=== PATIENT | male | born 1985 | race Caucasian/White ===

== ENCOUNTER 2019-06-14 22:47 | Emergency (ER) | payer SELFPAY ==
[2019-06-14] MEDS: Meperidine PF 50 MG/ML Syringe IM ONE ×2 (23:50→23:52)
[2019-06-14] MEDS: Acetaminophen/HYDROcodone 325-5 MG Tab PO PRN (23:54)
--- NOTE | 2019-06-14 23:55 | EDM.PDOC ---
ED HPI GENERAL MEDICAL PROBLEM - General Chief Complaint: General Stated Complaint: low back pain; fall Time Seen by Provider: 06/14/19 23:20 Source of Information: Reports: Patient History Limitations: Reports: No Limitations - History of Present Illness INITIAL COMMENTS - FREE TEXT/NARRATIVE: 33-year-old male presents emergency room for increasing low back pain. He is scheduled for an MRI of his lumbar spine 06/19/19 for left leg radiculopathy. His pain management is provided by his primary care Chris GRIFFITHS. He has been taking Ultram and hydrocodone. He called to get into see Chris on Sunday for refill of his pain medications but was unable to get an appointment. He was told to be seen in the ER if his pain was out of control. He was seen at the [facility] ER yesterday. He was given IM Toradol and 2 Percocet. He has allergies to Toradol causing a rash. He now presents to the emergency room here as he fell helping a friend today with his cattle falling on the ice. He is cooperative, pleasant, and answers my questions appropriately. His buttock pain is worse in his low back pain currently. He denies saddle paresthesias. He has no loss of bowel or bladder control. Activity such as bending twisting or lifting exacerbate his symptoms. He reports he has significant difficulty writing and a vehicle very long. No other complaints are voiced. Onset: Unknown/Unsure Duration: Getting Worse Location: Reports: Back, Lower Extremity, Left Quality: Reports: Burning Severity: Moderate Improves with: Reports: Medication, Rest Worsens with: Reports: Movement Associated Symptoms: Reports: No Other Symptoms Treatments SAWMILL TALLY CLERK: Reports: NSAIDS Right Lower Back Pain Score (Numeric/FACES): 10 - Related Data Allergies Allergy/AdvReac Type Severity Reaction Status Date / Time baclofen Allergy Hives Verified 06/14/19 23:15 cyclobenzaprine Allergy Hives Verified 06/14/19 23:15 [From Flexeril] gabapentin Allergy Hives Verified 06/14/19 23:15 ketorolac [From Toradol] Allergy Rash Verified 06/14/19 23:15 Home Meds: Home Meds Fexofenadine [Hilda] 180 mg PO DAILY 06/14/19 [History] Past Medical History Cardiovascular History: Reports: Hypertension Other Cardiovascular History: possible HTN (Jun 2019) Gastrointestinal History: Reports: GERD Musculoskeletal History: Reports: Back Pain, Chronic Neurological History: Reports: Headaches, Chronic, Migraines - Infectious Disease History Infectious Disease History: Reports: Chicken Pox Social & Family History - Tobacco Use Smoking Status *Q: Current Every Day Smoker Years of Tobacco use: 15 Packs/Tins Daily: 0.5 - Caffeine Use Caffeine Use: Reports: Soda - Recreational Drug Use Recreational Drug Use: No ED ROS GENERAL - Review of Systems Review Of Systems: Comprehensive ROS is negative, except as noted in HPI. ED EXAM, GENERAL - Physical Exam Exam: See Below Exam Limited By: No Limitations General Appearance: Alert, WD/WN, No Apparent Distress Ears: Hearing Grossly Normal Nose: Normal Inspection Throat/Mouth: Normal Voice, No Airway Compromise Head: Atraumatic Neck: Normal Inspection Respiratory/Chest: No Respiratory Distress Back Exam: Normal Inspection, Paraspinal Tenderness Extremities: Normal Inspection, Normal Range of Motion Neurological: Alert, Oriented, No Motor/Sensory Deficits Psychiatric: Normal Affect, Normal Mood Skin Exam: Warm, Dry, Intact Course - Vital Signs Last Recorded V/S: Last Vital Signs Temp 98.3 F 06/14/19 23:02 Pulse 93 06/14/19 23:02 Resp 18 06/14/19 23:02 BP 141/78 H 06/14/19 23:02 Pulse Ox 100 06/14/19 23:02 - Orders/Labs/Meds Orders: Active Orders 24 hr Category Date Time Status Lumbar Spine 2 or 3V [CR] Stat Exams 06/14/19 23:12 Ordered Acetaminophen/HYDROcodone [[place] 325-5 MG] Med 06/14/19 23:45 Ordered 6 tab PO Q6H PRN Medication Orders Hydrocodone Bitart/Acetaminophen ([place] 325-5 Mg) 6 tab PO Q6H PRN PRN Reason: Pain Meds: Medications Generic Name Dose Route Start Last Admin Trade Name Freq PRN Reason Stop Dose Admin Hydrocodone Bitart/Acetaminophen 6 tab 06/14/19 23:45 [place] 325-5 Mg PO Q6H PRN Pain Discontinued Medications Generic Name Dose Route Start Last Admin Trade Name Freq PRN Reason Stop Dose Admin Meperidine HCl 50 mg 06/14/19 23:44 Demerol IM 06/14/19 23:45 ONETIME ONE Meperidine HCl 50 mg 06/14/19 23:44 Demerol IM 06/14/19 23:45 ONETIME ONE - Radiology Interpretation Free Text/Narrative:: X-rays AP lateral lumbar spine Findings: There is loss of the lumbar lordosis. Bridging anterior disc osteophyte is noted off L2-3 where there is loss of intervertebral body disc height. No acute fracture or spondylolisthesis is seen. Impression: Loss of lumbar lordosis. Degenerative disc disease with disc osteophyte complex L2-3 Departure - Departure Time of Disposition: 00:00 Disposition: Home, Self-Care 01 Condition: Good Clinical Impression: Lumbar back pain with radiculopathy affecting left lower extremity - Discharge Information Instructions: Sciatica, [id number], Chronic Back Pain Forms: ED Department Discharge - My Orders Last 24 Hours: My Active Orders 06/14/19 23:12 Lumbar Spine 2 or 3V [CR] Stat 06/14/19 23:45 Acetaminophen/HYDROcodone [[place] 325-5 MG] 6 tab PO Q6H PRN - Assessment/Plan Last 24 Hours: My Active Orders 06/14/19 23:12 Lumbar Spine 2 or 3V [CR] Stat 06/14/19 23:45 Acetaminophen/HYDROcodone [[place] 325-5 MG] 6 tab PO Q6H PRN Assessment:: Low back pain with left leg radiculopathy Plan: 1. [place] 5/325 1po Q6hrs prn. #6 2. Ibuprofen 800 mg 3 times a day with food. 3. Ice or heat packs lower back. 4. No vigorous activity or heavy lifting 5. Follow-up with your primary care on Sunday
== END 2019-06-15 | disposition home or self-care (01) ==
LOC: KA.ED 22:47
DX: M54.16 Radiculopathy, lumbar region (principal); F17.210 Nicotine dependence, cigarettes, uncomplicated; K21.9 Gastro-esophageal reflux disease without esophagitis; Z79.899 Other long term (current) drug therapy; Z88.1 Allergy status to other antibiotic agents; Z88.6 Allergy status to analgesic agent
CPT/HCPCS: 72100; 96372; 99283; A9270; J2175; 99284

== ENCOUNTER 2019-07-03 23:47 | Emergency (ER) | payer OTHER ==
--- NOTE | 2019-07-04 00:22 | EDM.PDOC ---
ED HPI GENERAL MEDICAL PROBLEM - General Chief Complaint: Upper Extremity Injury/Pain Stated Complaint: Shoulder pain Time Seen by Provider: 07/04/19 00:05 Source of Information: Reports: Patient History Limitations: Reports: No Limitations - History of Present Illness INITIAL COMMENTS - FREE TEXT/NARRATIVE: 33 YO WM presents to ER complaining of right supper back/shoulder pain which began after carrying some plywood to his truck earlier in the day. Pt with history of chronic low back pain and is followed closely by Chris Cueto. Pt has been scheduled to see pain management for epidural shots. Pt is treated with hydrocodone 5/325 for his chronic pain. Pt reports taking Aleve 2 tablets at 8pm without much improvement in pain. Pt requesting tramadol for pain because it doesn't make him sleepy. Pt denies any weakness or paraesthesias. Pt able to move neck without pain. Pt reports pain is behind his right shoulder blade. Pt denies chest pain or shortness of breath. Onset: Today Location: Reports: Upper Extremity, Right Quality: Reports: Ache Severity: Moderate Improves with: Reports: Rest Worsens with: Reports: Movement Associated Symptoms: Reports: No Other Symptoms. Denies: Chest Pain, Shortness of Breath Right Shoulder Pain Score (Numeric/FACES): 9 - Related Data Allergies Allergy/AdvReac Type Severity Reaction Status Date / Time baclofen Allergy Hives Verified 07/04/19 00:06 cyclobenzaprine Allergy Hives Verified 07/04/19 00:06 [From Flexeril] gabapentin Allergy Hives Verified 07/04/19 00:06 ketorolac [From Toradol] Allergy Rash Verified 07/04/19 00:06 methocarbamol [From Robaxin] Allergy Swelling Verified 07/04/19 00:13 Home Meds: Home Meds Fexofenadine [Hilda] 180 mg PO DAILY 06/14/19 [History] traMADol [Ultram] 50 mg PO Q6H PRN #6 tab 07/04/19 [Rx] Past Medical History Cardiovascular History: Reports: Hypertension Other Cardiovascular History: possible HTN (Jun 2019) Gastrointestinal History: Reports: GERD Musculoskeletal History: Reports: Back Pain, Chronic Neurological History: Reports: Headaches, Chronic, Migraines - Infectious Disease History Infectious Disease History: Reports: Chicken Pox Social & Family History - Caffeine Use Caffeine Use: Reports: Soda Review of Systems - Review of Systems Review Of Systems: See Below Constitutional: Reports: No Symptoms Eyes: Reports: No Symptoms Ears: Reports: No Symptoms Nose: Reports: No Symptoms Mouth/Throat: Reports: No Symptoms Respiratory: Reports: No Symptoms Cardiovascular: Reports: No Symptoms GI/Abdominal: Reports: No Symptoms Genitourinary: Reports: No Symptoms Musculoskeletal: Reports: Shoulder Pain Skin: Reports: No Symptoms Neurological: Reports: No Symptoms Psychiatric: Reports: No Symptoms ED EXAM, GENERAL - Physical Exam Exam: See Below Exam Limited By: No Limitations General Appearance: Alert, WD/WN, No Apparent Distress Eye Exam: Bilateral Eye: PERRL Head: Atraumatic, Normocephalic Neck: Normal Inspection, Supple, Non-Tender, Full Range of Motion Respiratory/Chest: No Respiratory Distress, Lungs Clear, Normal Breath Sounds, No Accessory Muscle Use, Chest Non-Tender Cardiovascular: Normal Peripheral Pulses, Regular Rate, Rhythm, No Edema, No Gallop, No JVD, No Murmur, No Rub GI/Abdominal: Normal Bowel Sounds, Soft, Non-Tender, No Organomegaly, No Distention, No Abnormal Bruit, No Mass Back Exam: Normal Inspection, Full Range of Motion, NT Extremities: Normal Range of Motion, No Pedal Edema, Normal Capillary Refill ( right upper back/shoulder pain with full AROM/PROM ) Neurological: Alert, Oriented, CN II-XII Intact, Normal Cognition, Normal Gait, Normal Reflexes, No Motor/Sensory Deficits Psychiatric: Normal Affect, Normal Mood Skin Exam: Warm, Dry, Intact, Normal Color, No Rash Course - Vital Signs Last Recorded V/S: Last Vital Signs Temp 37.3 C 07/03/19 23:51 Pulse 92 07/03/19 23:51 Resp 18 07/03/19 23:51 BP 130/85 07/03/19 23:51 Pulse Ox 98 07/03/19 23:51 - Orders/Labs/Meds Orders: Active Orders 24 hr Category Date Time Status Shoulder Comp Rt [CR] Stat Exams 07/04/19 00:00 Stop Req Thoracic Spine 2V [CR] Stat Exams 07/04/19 00:22 Ordered traMADol [Ultram] Med 07/04/19 00:45 Active 100 mg PO Q6H Medication Orders Tramadol HCl (Ultram) 100 mg PO Q6H CARLOS Meds: Medications Generic Name Dose Route Start Last Admin Trade Name Dallin PRN Reason Stop Dose Admin Tramadol HCl 100 mg 07/04/19 00:45 Ultram PO Q6H CARLOS Discontinued Medications Generic Name Dose Route Start Last Admin Trade Name Dallin PRN Reason Stop Dose Admin Acetaminophen 1,000 mg 07/04/19 00:23 07/04/19 00:27 Tylenol Extra Strength PO 07/04/19 00:24 1,000 mg ONETIME ONE Administration - Radiology Interpretation Free Text/Narrative:: thoracic spine- NAD Departure - Departure Time of Disposition: 00:39 Disposition: Home, Self-Care 01 Condition: Good Clinical Impression: Upper back pain on right side - Discharge Information Prescriptions: traMADol [Ultram] 50 mg PO Q6H PRN #6 tab PRN Reason: Pain Instructions: Shoulder Pain, [id number] Referrals: Chris Cueto PA-C [Physician Portable Power Tool Repairer] - Forms: ED Department Discharge Additional Instructions: 1. discharge home 2. motrin 600mg every 6 hours x 5 days 3. ultram 1 tablet Q4-6 #6 PRN pain 4. ice to upper back/right shoulder 5. follow up with PCP for further evaluation and treatment of pain 6. return to ER for worsening symptoms Sepsis Event Note - Evaluation Sepsis Screening Result: No Definite Risk - Focused Exam Vital Signs: Vital Signs Temp Pulse Resp BP Pulse Ox 07/03/19 23:51 37.3 C 92 18 130/85 98 Date Exam was Performed: 07/04/19 Time Exam was Performed: 00:39 - My Orders Last 24 Hours: My Active Orders 07/04/19 00:00 Shoulder Comp Rt [CR] Stat 07/04/19 00:22 Thoracic Spine 2V [CR] Stat 07/04/19 00:45 traMADol [Ultram] 100 mg PO Q6H - Assessment/Plan Last 24 Hours: My Active Orders 07/04/19 00:00 Shoulder Comp Rt [CR] Stat 07/04/19 00:22 Thoracic Spine 2V [CR] Stat 07/04/19 00:45 traMADol [Ultram] 100 mg PO Q6H Assessment:: 1. right upper back pain Plan: 1. discharge home 2. motrin 600mg every 6 hours x 5 days 3. ultram 1 tablet Q4-6 #6 PRN pain 4. ice to upper back/right shoulder 5. follow up with PCP for further evaluation and treatment of pain 6. return to ER for worsening symptoms
[2019-07-04] MEDS ORDERED: Acetaminophen 500 MG Tab PO ONE (00:23)
[2019-07-04] MEDS ORDERED: traMADol 50 MG Tab PO SCH (00:45)
--- NOTE | 2019-07-04 07:37 | CR ---
[id number] RAD/RAD Thoracic Spine 2V EXAM: THORACIC SPINE 3 VIEWS INDICATION: PAIN COMPARISON: None. DISCUSSION: Mild convex right curvature centered in the mid to lower thoracic spine. The vertebral bodies are otherwise normal in height and alignment. Mild endplate hypertrophy at multiple levels compatible with early degenerative disc disease. IMPRESSION: 1. Mild thoracic spondylosis. Bhavin Black MD 07/04/19 0736 Thank you for allowing us to participate in the care of your patient.
== END 2019-07-04 00:50 | disposition home or self-care (01) ==
LOC: KA.ED 23:47
DX: M54.9 Dorsalgia, unspecified (principal); M54.5 Low back pain; G89.29 Other chronic pain; I10 Essential (primary) hypertension; K21.9 Gastro-esophageal reflux disease without esophagitis; G43.709 Chronic migraine without aura, not intractable, without status migrainosus; Z88.8 Allergy status to other drugs, medicaments and biological substances; Z79.899 Other long term (current) drug therapy
CPT/HCPCS: 72070; 99283; 99284; A9270

== ENCOUNTER 2019-09-15 22:38 | Emergency (ER) | payer SELFPAY ==
[2019-09-15] MEDS ORDERED: Dexamethasone 10 MG/ML SDV IM ONE (23:05)
--- NOTE | 2019-09-15 23:16 | EDM.PDOC ---
ED HPI GENERAL MEDICAL PROBLEM - General Chief Complaint: Back Pain or Injury Stated Complaint: back pain Time Seen by Provider: 09/15/19 23:04 Source of Information: Reports: Patient History Limitations: Reports: No Limitations - History of Present Illness INITIAL COMMENTS - FREE TEXT/NARRATIVE: Patient is a 33-year-old gentleman who presents to the emergency department this evening via private vehicle with complaint of low back pain. Patient states approximately 1400 today, he tripped and fell backwards landing on a tree stump. States he just stroke, specifically his low back. Patient does have history of chronic back pain. Patient denies abdominal pain, chest pain, shortness of breath, head injury, saddle anesthesia, bladder or bowel incontinence, or testicular pain. Onset: Sudden Onset Time: 14:00 Duration: Hour(s): Location: Reports: Back Quality: Reports: Ache Severity: Mild Improves with: Reports: None Worsens with: Reports: Movement Context: Reports: Trauma Associated Symptoms: Reports: No Other Symptoms - Related Data Allergies Allergy/AdvReac Type Severity Reaction Status Date / Time baclofen Allergy Hives Verified 07/04/19 00:06 cyclobenzaprine Allergy Hives Verified 07/04/19 00:06 [From Flexeril] gabapentin Allergy Hives Verified 07/04/19 00:06 ketorolac [From Toradol] Allergy Rash Verified 07/04/19 00:06 methocarbamol [From Robaxin] Allergy Swelling Verified 07/04/19 00:13 Home Meds: Home Meds Fexofenadine [Hilda] 180 mg PO DAILY 06/14/19 [History] traMADol [Ultram] 50 mg PO Q6H PRN #6 tab 07/04/19 [Rx] Past Medical History Cardiovascular History: Reports: Hypertension Other Cardiovascular History: possible HTN (Jun 2019) Gastrointestinal History: Reports: GERD Musculoskeletal History: Reports: Back Pain, Chronic Neurological History: Reports: Headaches, Chronic, Migraines - Infectious Disease History Infectious Disease History: Reports: Chicken Pox Social & Family History - Caffeine Use Caffeine Use: Reports: Soda ED ROS GENERAL - Review of Systems Review Of Systems: Comprehensive ROS is negative, except as noted in HPI. Constitutional: Reports: No Symptoms HEENT: Reports: No Symptoms Respiratory: Reports: No Symptoms Cardiovascular: Reports: No Symptoms Endocrine: Reports: No Symptoms GI/Abdominal: Reports: No Symptoms : Reports: No Symptoms Musculoskeletal: Reports: Back Pain Skin: Reports: No Symptoms Neurological: Reports: No Symptoms Psychiatric: Reports: No Symptoms Hematologic/Lymphatic: Reports: No Symptoms Immunologic: Reports: No Symptoms ED EXAM,LOWER BACK PAIN/INJURY - Physical Exam Exam: See Below Exam Limited By: No Limitations General Appearance: Alert, WD/WN, No Apparent Distress Throat/Mouth: Normal Inspection, Normal Oropharynx, No Airway Compromise Head: Atraumatic, Normocephalic Neck: Normal Inspection, Supple, Non-Tender, Full Range of Motion Respiratory/Chest: No Respiratory Distress, Lungs Clear, Normal Breath Sounds, No Accessory Muscle Use, Chest Non-Tender Cardiovascular: Regular Rate, Rhythm, No Murmur GI/Abdominal: Normal Bowel Sounds, Soft, Non-Tender, Pelvis Stable Back Exam: Decreased Range of Motion, Paraspinal Tenderness, Other ( No erythema , ecchymosis, edema, or abrasions of low back.). No: CVA Tenderness (L), CVA Tenderness (R), Vertebral Tenderness Extremities: Normal Inspection, Normal Range of Motion, Non-Tender, No Pedal Edema Neurological: Alert, Normal Mood/Affect, Normal Dorsiflexion, Normal Plantar Flexion, Oriented x 3 Psychiatric: Normal Affect, Normal Mood Skin Exam: Warm, Dry, Intact, Normal Color, No Rash Course - Orders/Labs/Meds Meds: Medications Discontinued Medications Generic Name Dose Route Start Last Admin Trade Name Dallin PRN Reason Stop Dose Admin Dexamethasone 8 mg 09/15/19 23:05 Dexamethasone IM 09/15/19 23:06 ONETIME ONE - Re-Assessments/Exams Free Text/Narrative Re-Assessment/Exam: 09/15/19 23:17 Patient afebrile, vital signs stable, 8 mg Decadron IM. Patient will follow-up with PCP Departure - Departure Time of Disposition: 23:18 Disposition: Home, Self-Care 01 Clinical Impression: Low back pain Qualifiers: Chronicity: chronic Back pain laterality: unspecified Sciatica presence: without sciatica Qualified Code(s): M54.5 - Low back pain; G89.29 - Other chronic pain - Discharge Information Instructions: Chronic Back Pain, [id number], Back Injury Prevention, Easy-to- Read Referrals: Chris Cueto PA-C [Physician Brake Tester] - Additional Instructions: Follow-up at [facility] tomorrow. Return to emergency department sooner symptoms continue or worsen. - Assessment/Plan Assessment:: Chronic low back pain Plan: Follow-up with PCP
== END 2019-09-15 23:30 | disposition home or self-care (01) ==
LOC: KA.ED 22:38
DX: G89.29 Other chronic pain (principal); M54.5 Low back pain; K21.9 Gastro-esophageal reflux disease without esophagitis; Z88.8 Allergy status to other drugs, medicaments and biological substances; Z88.6 Allergy status to analgesic agent; Z79.899 Other long term (current) drug therapy
CPT/HCPCS: 96372; 99283; J1100

== ENCOUNTER 2019-10-19 22:35 | Emergency (ER) | payer SELFPAY ==
[2019-10-19 22:54] VITALS: BP 144/82; PULSE 88
--- NOTE | 2019-10-19 23:04 | EDM.PDOC ---
ED HPI GENERAL MEDICAL PROBLEM - General Chief Complaint: General Stated Complaint: LEFT ANKLE PAIN Time Seen by Provider: 10/19/19 22:59 Source of Information: Reports: Patient History Limitations: Reports: No Limitations - History of Present Illness INITIAL COMMENTS - FREE TEXT/NARRATIVE: Patient is a 33-year-old gentleman who presents to the emergency department this evening via private vehicle with a complaint of left ankle and foot pain. Patient states 1 week ago he twisted his ankle and was seen at [place] ER. At that time. He was told he did have a fracture, but no splint was applied. He followed up with Dr. Christopher joe on Sunday, who reviewed radiology report and informed him that there was no fracture. This evening while playing with his children. He reinjured ankle and foot with an accidental twist. Patient denies any other injuries. Onset: Today Duration: Hour(s): Location: Reports: Lower Extremity, Left Quality: Reports: Ache Severity: Mild Improves with: Reports: None Worsens with: Reports: Movement Context: Reports: Trauma Associated Symptoms: Reports: No Other Symptoms Left ankle/foot Pain Score (Numeric/FACES): 10 - Related Data Allergies Allergy/AdvReac Type Severity Reaction Status Date / Time baclofen Allergy Hives Verified 10/19/19 22:38 cyclobenzaprine Allergy Hives Verified 10/19/19 22:38 [From Flexeril] gabapentin Allergy Hives Verified 10/19/19 22:38 ketorolac [From Toradol] Allergy Rash Verified 10/19/19 22:38 methocarbamol [From Robaxin] Allergy Swelling Verified 10/19/19 22:38 Home Meds: Home Meds . [No Known Home Meds] 10/19/19 [History] Past Medical History Cardiovascular History: Reports: Heart Murmur Other Cardiovascular History: possible HTN (Jun 2019) Gastrointestinal History: Reports: GERD Musculoskeletal History: Reports: Back Pain, Chronic Neurological History: Reports: Headaches, Chronic, Migraines - Infectious Disease History Infectious Disease History: Reports: Chicken Pox Social & Family History - Family History Family Medical History: Noncontributory - Tobacco Use Smoking Status *Q: Current Every Day Smoker Years of Tobacco use: 20 Packs/Tins Daily: 0.5 - Caffeine Use Caffeine Use: Reports: Soda - Recreational Drug Use Recreational Drug Use: No ED ROS GENERAL - Review of Systems Review Of Systems: Comprehensive ROS is negative, except as noted in HPI. Constitutional: Reports: No Symptoms HEENT: Reports: No Symptoms Respiratory: Reports: No Symptoms Cardiovascular: Reports: No Symptoms Endocrine: Reports: No Symptoms GI/Abdominal: Reports: No Symptoms : Reports: No Symptoms Musculoskeletal: Reports: Leg Pain (Left ankle), Foot Pain (Left) Skin: Reports: Bruising Neurological: Reports: No Symptoms Psychiatric: Reports: No Symptoms Hematologic/Lymphatic: Reports: No Symptoms Immunologic: Reports: No Symptoms ED EXAM, GENERAL - Physical Exam Exam: See Below Exam Limited By: No Limitations General Appearance: Alert, WD/WN, No Apparent Distress Throat/Mouth: Normal Inspection, Normal Oropharynx, No Airway Compromise Head: Atraumatic, Normocephalic Respiratory/Chest: No Respiratory Distress Extremities: Normal Capillary Refill, Other (Left foot with minimal edema at the dorsolateral aspect. No obvious deformity, or ligament laxity of ankle.) Neurological: Alert, Oriented, Normal Cognition Psychiatric: Normal Affect, Normal Mood Skin Exam: Warm, Dry, Intact, Normal Color, No Rash, Ecchymosis (Mild linear strip of ecchymosis at the distal aspect of lateral left foot) Course - Vital Signs Last Recorded V/S: Last Vital Signs Temp 98.0 F 10/19/19 22:49 Pulse 88 10/19/19 22:49 Resp 18 10/19/19 22:49 BP 144/82 H 10/19/19 22:49 Pulse Ox 100 10/19/19 22:49 - Orders/Labs/Meds Orders: Active Orders 24 hr Category Date Time Status Ankle Min 3V Lt [CR] Stat Exams 10/19/19 22:44 Ordered Foot 2V Lt [CR] Stat Exams 10/19/19 22:44 Ordered - Radiology Interpretation Free Text/Narrative:: X-ray of left foot and ankle shows no acute fracture or dislocation - Re-Assessments/Exams Free Text/Narrative Re-Assessment/Exam: 10/19/19 23:20 Patient afebrile, vital signs stable. Currently has ankle brace. Will follow- up with PCP Departure - Departure Time of Disposition: 23:21 Disposition: Home, Self-Care 01 Condition: Good Clinical Impression: Left ankle sprain Qualifiers: Encounter type: initial encounter Involved ligament of ankle: unspecified ligament Qualified Code(s): S93.402A - Sprain of unspecified ligament of left ankle, initial encounter - Discharge Information Instructions: How to Use a Stirrup Ankle Brace, [id number], How to Use Cold Therapy, [id number], Ankle Sprain, [id number] Referrals: Kailee Marks MD [Physician] - Additional Instructions: Follow-up with [facility] in 1-2 days for recheck Sepsis Event Note - Evaluation Sepsis Screening Result: No Definite Risk - Focused Exam Vital Signs: Vital Signs Temp Pulse Resp BP Pulse Ox 10/19/19 22:49 98.0 F 88 18 144/82 H 100 Date Exam was Performed: 10/19/19 Time Exam was Performed: 22:59 - My Orders Last 24 Hours: My Active Orders 10/19/19 22:44 Ankle Min 3V Lt [CR] Stat Foot 2V Lt [CR] Stat - Assessment/Plan Last 24 Hours: My Active Orders 10/19/19 22:44 Ankle Min 3V Lt [CR] Stat Foot 2V Lt [CR] Stat Assessment:: Left ankle sprain Plan: Follow-up with PCP
--- NOTE | 2019-10-20 08:06 | CR ---
[id number] RAD/RAD Ankle Left 3V Min Exam: RAD Ankle Left 3V Min Indication:ANKLE PAIN Comparison: No prior imaging for comparison. Discussion: 2 tiny mineralized structures in the soft tissues at the tip of the medial malleolus. A single tiny mineralized structure in the lateral gutter of the ankle mortise is well. These measure between 1 and 2 mm and are seen best on the AP view. Findings are most consistent with age-indeterminate small avulsion fracture fragments. Given lack of significant soft tissue swelling, findings are likely chronic. Bones are normal alignment. Joint spaces are well-preserved. No AVN or osteochondral defect. Impression: As above. Milton Rangel MD 10/20/19 0804 Thank you for allowing us to participate in the care of your patient.
--- NOTE | 2019-10-20 08:07 | CR ---
[id number] RAD/RAD Foot Left 2V Exam: RAD Foot Left 2V Indication:ANKLE PAIN Comparison: No prior imaging for comparison. Discussion: Bones are normal alignment. No fracture or dislocation. No AVN or erosive changes. Joint spaces are well-preserved. Impression: Negative examination of the foot. Milton Rangel MD 10/20/19 0805 Thank you for allowing us to participate in the care of your patient.
== END 2019-10-19 23:26 | disposition home or self-care (01) ==
LOC: KA.ED 22:35
DX: S93.402A Sprain of unspecified ligament of left ankle, initial encounter (principal); F17.210 Nicotine dependence, cigarettes, uncomplicated; Z88.8 Allergy status to other drugs, medicaments and biological substances; X50.1XXA Overexertion from prolonged static or awkward postures, initial encounter
CPT/HCPCS: 73610-LT; 73620-LT; 99283; 99283-25